=== PATIENT | female | born 1990 | race Caucasian/White ===

== ENCOUNTER 2016-06-10 18:45 | Emergency (ER) | payer OTHER ==
--- NOTE | 2016-06-10 22:20 | ED ORDER SUMMARY ---
..... Patient: IVA GOMEZ OrderSheet [facility] VisitID: [id number] [address] [place] [address] 25y, F Registration Date/Time: 06/10/2016 ORDER SHEET Weight: 49.8 kg (stated) Allergies: No Known Drug Allergy GENERAL ORDERS: UA-Culture if indicated Urgent (19:18 06/10/2016 DDean R.N. per protocol) (19:25 EBonham) Pelvic Exam Setup (20:20 06/10/2016 HBivens A.R.N.P.) (20:30 EBonham) Heart Tones (20:20 06/10/2016 HBivens A.R.N.P.) (20:25 EBonham) Wet Prep (Vaginal) (vagina) Urgent (20:43 06/10/2016 HBivens A.R.N.P.) (Ack 20:44 CHagerty ER Black Ash Worker) (20:50 EBonham) GC/Chlamydia (Vaginal) (vagina) Urgent (20:43 06/10/2016 HBivens A.R.N.P.) (Ack 20:44 CHagerty ER Black [place] Worker) (20:50 EBonham) Urine Drug Screen Urgent (20:43 06/10/2016 HBivens A.R.N.P.) (Ack 20:44 CHagerty ER Black [place] Worker) (20:50 EBonham) MEDICATION ORDERS: Ceftriaxone IM 250 mg (NOW) (22:20 06/10/2016 HBivens A.R.N.P.) (22:38 EBonham) IV FLUIDS: ORDER SHEET NOTES: [Electronically signed by Carlie Soto (23:00 06/10/2016)] [Electronically signed by Elaina Bates A.R.N.P. (13:35 06/11/2016)] [Electronically locked/signed by Carlie Soto (23:00 06/10/2016)]
--- NOTE | 2016-06-10 22:20 | ED NURSING NOTES ---
Clinical Report - Nurses [facility] [address] [place] [address] 06/10/2016 18:47 Patient: IVA GOMEZ TRIAGE Triage time 1905. Acuity: LEVEL 3. --19:13 Nadege Madrid R.N. 19:05 06/10/16. BP: 130/79. HR: 84. RR: 20. O2 saturation: 97%. Temp: 98.2 F. Pain level now: 12/26. --19:13 Nadege Madrid R.N. Chief Complaint: ABDOMINAL CRAMPS and VAGINAL BLEEDING. --23:00 Carlie Soto. Weight: 49.8 kg stated. Height/Length: 63 inches Per Patient. BMI: 19.5. --19:12 Nadege Madrid R.N. Medications None. --19:12 Nadege Madrid R.N. Allergies No Known Drug Allergy. --19:11 Nadege Madrid R.N. History Arrived by private vehicle. Historian: patient. Accompanied by friend. Primary physician (fina). Onset. (spotting started Tuesday night, cont. tues- cramping pain started on tuesday. Has been seen by [facility] with Negative exam). ( states she has been under alot of stress lately,. just changed dr from jeevan [facility] to bobby). PAST MEDICAL HX: OB history: G 5; P 1; Ab 3 (3 SAB). SOCIAL HX: Light tobacco smoker (cigarette)- less than 1/2 a pack per day. No alcohol use or drug use. --19:13 Nadege Madrid R.N. PROBLEMS: Influenza. Migraine Headache. Threatened . Problems. Care. Dysfunctional Uterine Bleeding. Pharyngitis. Dental Abscess. Pelvic Pain. Vaginitis. Dental Pain. Dental Caries. Sinusitis. UTI - Urinary Tract Infection. Bronchitis. Pelvic Inflammatory Disease. --19:10 Nadege Madrid R.N. ADDITIONAL SURGERIES: Dental Surgery. --19:10 Nadege Madrid R.N. Interventions ID band on patient. To treatment room. --19:13 Nadege Madrid R.N. NURSING PROGRESS NOTES ( FHT 150 mid low abd). --20:26 Carlie Soto Rn Surgery provided for the pelvic exam by the physician. PELVIC EXAM: Pelvic exam performed by INCLUSION INTERN. Assisted by one nurse. Preparation: pelvic tray. Procedure: speculum and bimanual exam. Copious amount of thin white and yellow vaginal discharge noted. Specimens collected and sent to lab: GC, chlamydia and wet prep. Status post-procedure: she was stable. Total time of assist / procedure: 15 minutes. --20:47 Carlie Soto 22:30 06/10/2016 Ceftriaxone IM 250 mg given. Given in the right gluteus claire. Allergies verified and confirmed 5 rights. --22:38 Carlie Soto Reassessment after medication administered. She has had no adverse reaction. Overall patient status is the same- she states feels the same. --22:59 Carlie Soto. DISPOSITION / DISCHARGE Departure time: 2300. Condition at departure: unchanged and stable. Discharge instructions provided and reviewed with the patient. Reviewed medication(s). Patient verbalized understanding. Written instructions provided in Malian. The patient was discharged by the nurse practitioner. She was discharged home and accompanied by family. She left the Emergency Department ambulatory and via private vehicle. Family member driving. --23:00 Carlie Soto 22:59 06/10/16. BP: 132/72. HR: 86. RR: 16. O2 saturation: 98%. Pain level now 05/28. --23:00 Carlie Soto. Locked/Released at 06/10/2016 23:00 by Carlie Soto,
--- NOTE | 2016-06-10 22:20 | ED NURSING NOTES ---
Clinical Report - Nurses [facility] [address] [place] [address] 06/10/2016 18:47 Patient: IVA GOMEZ TRIAGE Triage time 1905. Acuity: LEVEL 3. --19:13 Nadege Madrid R.N. 19:05 06/10/16. BP: 130/79. HR: 84. RR: 20. O2 saturation: 97%. Temp: 98.2 F. Pain level now: 12/26. --19:13 Nadege Madrid R.N. Chief Complaint: ABDOMINAL CRAMPS and VAGINAL BLEEDING. --23:00 Carlie Soto. Weight: 49.8 kg stated. Height/Length: 63 inches Per Patient. BMI: 19.5. --19:12 Nadege Madrid R.N. Medications None. --19:12 Nadege Madrid R.N. Allergies No Known Drug Allergy. --19:11 Nadege Madrid R.N. History Arrived by private vehicle. Historian: patient. Accompanied by friend. Primary physician (fina). Onset. (spotting started Tuesday night, cont. tues- cramping pain started on tuesday. Has been seen by [facility] with Negative exam). ( states she has been under alot of stress lately,. just changed dr from jeevan [facility] to bobby). PAST MEDICAL HX: OB history: G 5; P 1; Ab 3 (3 SAB). SOCIAL HX: Light tobacco smoker (cigarette)- less than 1/2 a pack per day. No alcohol use or drug use. --19:13 Nadege Madrid R.N. PROBLEMS: Influenza. Migraine Headache. Threatened . Problems. Care. Dysfunctional Uterine Bleeding. Pharyngitis. Dental Abscess. Pelvic Pain. Vaginitis. Dental Pain. Dental Caries. Sinusitis. UTI - Urinary Tract Infection. Bronchitis. Pelvic Inflammatory Disease. --19:10 Nadege Madrid R.N. ADDITIONAL SURGERIES: Dental Surgery. --19:10 Nadege Madrid R.N. Interventions ID band on patient. To treatment room. --19:13 Nadege Madrid R.N. NURSING PROGRESS NOTES ( FHT 150 mid low abd). --20:26 Carlie Soto Customer Engagement Specialist provided for the pelvic exam by the physician. PELVIC EXAM: Pelvic exam performed by BUS MATRON. Assisted by one nurse. Preparation: pelvic tray. Procedure: speculum and bimanual exam. Copious amount of thin white and yellow vaginal discharge noted. Specimens collected and sent to lab: GC, chlamydia and wet prep. Status post-procedure: she was stable. Total time of assist / procedure: 15 minutes. --20:47 Carlie Soto 22:30 06/10/2016 Ceftriaxone IM 250 mg given. Given in the right gluteus claire. Allergies verified and confirmed 5 rights. --22:38 Carlie Soto Reassessment after medication administered. She has had no adverse reaction. Overall patient status is the same- she states feels the same. --22:59 Carlie Soto. DISPOSITION / DISCHARGE Departure time: 2300. Condition at departure: unchanged and stable. Discharge instructions provided and reviewed with the patient. Reviewed medication(s). Patient verbalized understanding. Written instructions provided in Gibraltarian. The patient was discharged by the nurse practitioner. She was discharged home and accompanied by family. She left the Emergency Department ambulatory and via private vehicle. Family member driving. --23:00 Carlie Soto 22:59 06/10/16. BP: 132/72. HR: 86. RR: 16. O2 saturation: 98%. Pain level now 05/28. --23:00 Carlie Soto. Locked/Released at 06/10/2016 23:00 by Carlie Soto,
--- NOTE | 2016-06-10 22:20 | ED CLINICAL REPORT ---
Clinical Report - Physicians/Mid Levels [facility] [address] [place] [address] 06/10/2016 18:47 Patient: IVA GOMEZ Time Seen: 19:49; initial patient contact, initial documentation, patient care assumed. Arrived- By private vehicle. Historian- patient. HISTORY OF PRESENT ILLNESS Chief Complaint: VAGINAL BLEEDING. This started about 3 - 4 days ago and now gone. The symptoms are described as mild. Modifying factors. Not worsened by anything. Not relieved by anything. The patient has had crampy, sharp, constant abdominal pain. The pain is described as located in the right lower quadrant, suprapubic region, left lower quadrant and lower abdomen. No nausea, vomiting, diarrhea or radiation of abdominal pain to the back. The patient has had pelvic pain and abnormal bleeding described as spotting. No vaginal pain, low back pain, flank pain, vaginal discharge or pain with urination. No urinary frequency, urgency of urination or hematuria. Sexually active. Currently . In 2nd trimester. confirmed with home test. Has had no care. Recent sonogram showed intrauterine . G 5. P 1. Ab 3. Not receiving care. Similar symptoms previously: None. Recent medical care: The patient was seen recently in a clinic. ( was at clinic in Apr, had us done for appy, not for ). REVIEW OF SYSTEMS No vomiting, diarrhea, fever, difficulty breathing or chest pain. All systems otherwise negative, except as recorded above. PAST HISTORY See nurses notes. ( PROBLEMS: Influenza. Migraine Headache. Threatened . Problems. Care. Dysfunctional Uterine Bleeding. Pharyngitis. Dental Abscess. Pelvic Pain. Vaginitis. Dental Pain. Dental Caries. Sinusitis. UTI - Urinary Tract Infection. Bronchitis. Pelvic Inflammatory Disease. --19:10 Nadege Madrid, R.N. ADDITIONAL SURGERIES: Dental Surgery. --19:10 Nadege Madrid, R.N.). SOCIAL HISTORY Light tobacco smoker. No alcohol use or drug use. No recent travel. Is a local resident. FAMILY HISTORY Negative. ADDITIONAL NOTES The nursing notes have been reviewed with agreement regarding the chief complaint, HPI, ROS, PMH and patient medications and allergies. PHYSICAL EXAM Vital Signs: 06/10/2016 19:05 BP: 130/79. HR: 84. RR: 20. O2 saturation: 97%. Temp: 98.2 F. Pain level now: 910. Have been reviewed as normal and appear to be correct. Appearance: Alert. Oriented X3. No acute distress. (pt appears under the influence). HEENT: Normal external inspection. ENT: Pharynx normal. Neck: Neck supple. CVS: Heart sounds normal. Respiratory: No respiratory distress. Breath sounds normal. Chest nontender. Abdomen: Soft and nontender. Bowel sounds normal. No organomegaly. No mass. Back: Normal external inspection. : External inspection normal. Speculum exam abnormal. A copious amount of thin, white and yellow vaginal discharge present. No vaginal bleeding. Cervical os closed. No cervical dilation. No tissue present. No cervicitis. No herpes-like lesions. Bimanual exam abnormal. Mild right adnexal tenderness; uterine tenderness. No right adnexal fullness or mass. No left adnexal tenderness. No cervical motion tenderness. Enlarged uterus- (slightly below umbilicus) Size consistent with dates. Normal heart tones. No uterine tenderness. No tenderness with movement of the cervix. Skin: Skin warm and dry. Normal skin color. No rash. Normal skin turgor. Extremities: Extremities nontender. No lower extremity edema. Neuro: Oriented X 3. Mood/affect normal. No motor deficit. No sensory deficit. LABS, X-RAYS, AND EKG Laboratory Tests: UA-Culture if indicated: (SHEILA: 06/10/2016 19:15) ( MsgRcvd 06/10/2016 19:40) Final results Test Result Flag Units (Reference) URINE COLOR YELLOW URINE APPEARANCE CLEAR URINE GLUCOSE NEGATIVE (NEGATIVE) URINE BILIRUBIN NEGATIVE (NEGATIVE) URINE KETONE NEGATIVE (NEGATIVE) URINE SPECIFIC GRAVITY 1.010 (1.010-1.030) URINE PH 7.0 (5.0-8.0) URINE PROTEIN NEGATIVE (NEGATIVE) URINE UROBILINOGEN 0.2 EU/dL (0.2-1.0) URINE NITRITE NEGATIVE (NEGATIVE) URINE BLOOD NEGATIVE (NEGATIVE) URINE LEUK ESTERASE NEGATIVE (NEGATIVE) URINE RBC NONE SEEN rbc/hpf (0-1) URINE WBC 0-1 wbc/hpf (0-1) URINE EPITHELIAL CELLS 1-3 EPI/hpf (0-5) URINE BACTERIA TRACE (<1+) (NONE SEEN) URINE COMMENT CULT NOT INDICATED URINE CULTURES ARE SET-UP BASED ON THE FOLLOWING CRITERIA:POSITIVE NITRITEPOSITIVE LEUKOCYTE ESTERASEGREATER THAN 10 WHITE BLOOD CELLSMODERATE (2+) OR GREATER BACTERIA Urine Drug Screen: (SHEILA: 06/10/2016 19:15) ( MogRcvd 06/10/2016 22:07) Final results Test Result Flag Units (Reference) AMPHETAMINE/METHAMPHETAMINE NEGATIVE (NEGATIVE) BARBITURATE NEGATIVE (NEGATIVE) BENZODIAZEPINE NEGATIVE (NEGATIVE) CANNABINOID NEGATIVE (NEGATIVE) COCAINE NEGATIVE (NEGATIVE) ECSTASY NEGATIVE (NEGATIVE) METHADONE NEGATIVE (NEGATIVE) OPIATE NEGATIVE (NEGATIVE) The urine drug screen is a qualitative screening test fordrug overdose and abuse. All screen results should beconsidered as presumptive.Drugs screened for are as follows:BenzodiazepinesCocaineAmphetamines/MetamphetaminesTHC (Tetrahydrocannabinol)OpiatesBarbituratesEcstasyMethadonePositive results are unconfirmed. For confirmation, notifythe lab for the specimen to be sent to the reference lab.All confirmations must be performed by a differentmethodology.The ingestion of natural herbal and plant productscontaining Ephedra/Ephedra metabolites can produce in urineone or more substances capable of cross reacting withamphetamine/methamphetamine immunoassays. These testsprovide a preliminary result only. A more specificalternative chemical method must be used to obtain aconfirmed analytical result. Wet Prep: (SHEILA: 06/10/2016 20:45) ( MsgRcvd 06/10/2016 21:05) Final results SPECIMEN DESCRIPTION: VAGINA Test Result Flag Units (Reference) WET MOUNT CLUE CELLS:: MANY * EPITHELIAL CELLS: MANY -- SOURCE?: VAGINA WHITE BLOOD CELLS: MANY TRICHOMONAS:: NONE -- YEAST:: NONE . PROGRESS AND PROCEDURES Course of Care: FHT's per nurse - 150's and strong pt changing her hx, from triage notes to exam, and then during exam and then again during pelvic exam portion, pt now telling me that she had something strange come out of her area captain and took picture of it, showed me photo and appears to be large vag dc/mucus type thing on tissue, pt now telling me she is having dc and can't remember when it started and that she wasn't really bleeding, only saw pink colored stuff on tissue when she wiped. Patient counseled in person regarding the patient's stable condition, test results and diagnosis. 22:16. Differential Diagnosis: Other possible considerations: threatened miscarriage, vag bleed, gonorrhea, chlamydia, trick, yeast, bv, pid. Above considerations are based on history, physical exam and laboratory data. Differential diagnosis was discussed with patient. Disposition: Discharged home in good and improved condition (22:20). Condition: good and stable. CLINICAL IMPRESSION Acute severe bacterial vaginitis INSTRUCTIONS No sexual contact. Warnings: GENERAL WARNINGS: Return or contact your physician immediately if your condition worsens or changes unexpectedly, if not improving as expected, or if other problems arise. Specifically return if problem worsens. Prescription Medications: Flagyl 500 mg: Take 1 tablet orally every 12 hours for 7 days. No refill. Substitution is permissible. Understanding of the discharge instructions verbalized by patient. Follow-up with: Wesley Remy MD, Obstetrics/Gynecology, , [facility], [address] [place] [address] Follow up in about three days even if well. Call for an appointment. Summary of care provided to patient. (Electronically signed by Elaina Bates A.R.N.P. 06/11/2016 13:35)
--- NOTE | 2016-06-10 22:20 | ED ORDER SUMMARY ---
..... Patient: IVA GOMEZ OrderSheet [facility] VisitID: [id number] [address] [place] [address] 25y, F Registration Date/Time: 06/10/2016 ORDER SHEET Weight: 49.8 kg (stated) Allergies: No Known Drug Allergy GENERAL ORDERS: UA-Culture if indicated Urgent (19:18 06/10/2016 DDean R.N. per protocol) (19:25 EBonham) Pelvic Exam Setup (20:20 06/10/2016 HBivens A.R.N.P.) (20:30 EBonham) Heart Tones (20:20 06/10/2016 HBivens A.R.N.P.) (20:25 EBonham) Wet Prep (Vaginal) (vagina) Urgent (20:43 06/10/2016 HBivens A.R.N.P.) (Ack 20:44 CHagerty ER Gelatin Powder Mixer) (20:50 EBonham) GC/Chlamydia (Vaginal) (vagina) Urgent (20:43 06/10/2016 HBivens A.R.N.P.) (Ack 20:44 CHagerty ER Gelatin Powder Mixer) (20:50 EBonham) Urine Drug Screen Urgent (20:43 06/10/2016 HBivens A.R.N.P.) (Ack 20:44 CHagerty ER Gelatin Powder Mixer) (20:50 EBonham) MEDICATION ORDERS: Ceftriaxone IM 250 mg (NOW) (22:20 06/10/2016 HBivens A.R.N.P.) (22:38 EBonham) IV FLUIDS: ORDER SHEET NOTES: [Electronically signed by Carlie Soto (23:00 06/10/2016)] [Electronically signed by Elaina Bates A.R.N.P. (13:35 06/11/2016)] [Electronically locked/signed by Carlie Soto (23:00 06/10/2016)]
--- NOTE | 2016-06-10 22:20 | ED CLINICAL REPORT ---
Clinical Report - Physicians/Mid Levels [facility] [address] [place] [address] 06/10/2016 18:47 Patient: IVA GOMEZ Time Seen: 19:49; initial patient contact, initial documentation, patient care assumed. Arrived- By private vehicle. Historian- patient. HISTORY OF PRESENT ILLNESS Chief Complaint: VAGINAL BLEEDING. This started about 3 - 4 days ago and now gone. The symptoms are described as mild. Modifying factors. Not worsened by anything. Not relieved by anything. The patient has had crampy, sharp, constant abdominal pain. The pain is described as located in the right lower quadrant, suprapubic region, left lower quadrant and lower abdomen. No nausea, vomiting, diarrhea or radiation of abdominal pain to the back. The patient has had pelvic pain and abnormal bleeding described as spotting. No vaginal pain, low back pain, flank pain, vaginal discharge or pain with urination. No urinary frequency, urgency of urination or hematuria. Sexually active. Currently . In 2nd trimester. confirmed with home test. Has had no care. Recent sonogram showed intrauterine . G 5. P 1. Ab 3. Not receiving care. Similar symptoms previously: None. Recent medical care: The patient was seen recently in a clinic. ( was at clinic in Apr, had us done for appy, not for ). REVIEW OF SYSTEMS No vomiting, diarrhea, fever, difficulty breathing or chest pain. All systems otherwise negative, except as recorded above. PAST HISTORY See nurses notes. ( PROBLEMS: Influenza. Migraine Headache. Threatened . Problems. Care. Dysfunctional Uterine Bleeding. Pharyngitis. Dental Abscess. Pelvic Pain. Vaginitis. Dental Pain. Dental Caries. Sinusitis. UTI - Urinary Tract Infection. Bronchitis. Pelvic Inflammatory Disease. --19:10 Nadege Madrid, R.N. ADDITIONAL SURGERIES: Dental Surgery. --19:10 Nadege Madrid, R.N.). SOCIAL HISTORY Light tobacco smoker. No alcohol use or drug use. No recent travel. Is a local resident. FAMILY HISTORY Negative. ADDITIONAL NOTES The nursing notes have been reviewed with agreement regarding the chief complaint, HPI, ROS, PMH and patient medications and allergies. PHYSICAL EXAM Vital Signs: 06/10/2016 19:05 BP: 130/79. HR: 84. RR: 20. O2 saturation: 97%. Temp: 98.2 F. Pain level now: 910. Have been reviewed as normal and appear to be correct. Appearance: Alert. Oriented X3. No acute distress. (pt appears under the influence). HEENT: Normal external inspection. ENT: Pharynx normal. Neck: Neck supple. CVS: Heart sounds normal. Respiratory: No respiratory distress. Breath sounds normal. Chest nontender. Abdomen: Soft and nontender. Bowel sounds normal. No organomegaly. No mass. Back: Normal external inspection. : External inspection normal. Speculum exam abnormal. A copious amount of thin, white and yellow vaginal discharge present. No vaginal bleeding. Cervical os closed. No cervical dilation. No tissue present. No cervicitis. No herpes-like lesions. Bimanual exam abnormal. Mild right adnexal tenderness; uterine tenderness. No right adnexal fullness or mass. No left adnexal tenderness. No cervical motion tenderness. Enlarged uterus- (slightly below umbilicus) Size consistent with dates. Normal heart tones. No uterine tenderness. No tenderness with movement of the cervix. Skin: Skin warm and dry. Normal skin color. No rash. Normal skin turgor. Extremities: Extremities nontender. No lower extremity edema. Neuro: Oriented X 3. Mood/affect normal. No motor deficit. No sensory deficit. LABS, X-RAYS, AND EKG Laboratory Tests: UA-Culture if indicated: (SHEILA: 06/10/2016 19:15) ( MsgRcvd 06/10/2016 19:40) Final results Test Result Flag Units (Reference) URINE COLOR YELLOW URINE APPEARANCE CLEAR URINE GLUCOSE NEGATIVE (NEGATIVE) URINE BILIRUBIN NEGATIVE (NEGATIVE) URINE KETONE NEGATIVE (NEGATIVE) URINE SPECIFIC GRAVITY 1.010 (1.010-1.030) URINE PH 7.0 (5.0-8.0) URINE PROTEIN NEGATIVE (NEGATIVE) URINE UROBILINOGEN 0.2 EU/dL (0.2-1.0) URINE NITRITE NEGATIVE (NEGATIVE) URINE BLOOD NEGATIVE (NEGATIVE) URINE LEUK ESTERASE NEGATIVE (NEGATIVE) URINE RBC NONE SEEN rbc/hpf (0-1) URINE WBC 0-1 wbc/hpf (0-1) URINE EPITHELIAL CELLS 1-3 EPI/hpf (0-5) URINE BACTERIA TRACE (<1+) (NONE SEEN) URINE COMMENT CULT NOT INDICATED URINE CULTURES ARE SET-UP BASED ON THE FOLLOWING CRITERIA:POSITIVE NITRITEPOSITIVE LEUKOCYTE ESTERASEGREATER THAN 10 WHITE BLOOD CELLSMODERATE (2+) OR GREATER BACTERIA Urine Drug Screen: (SHEILA: 06/10/2016 19:15) ( OrgRcvd 06/10/2016 22:07) Final results Test Result Flag Units (Reference) AMPHETAMINE/METHAMPHETAMINE NEGATIVE (NEGATIVE) BARBITURATE NEGATIVE (NEGATIVE) BENZODIAZEPINE NEGATIVE (NEGATIVE) CANNABINOID NEGATIVE (NEGATIVE) COCAINE NEGATIVE (NEGATIVE) ECSTASY NEGATIVE (NEGATIVE) METHADONE NEGATIVE (NEGATIVE) OPIATE NEGATIVE (NEGATIVE) The urine drug screen is a qualitative screening test fordrug overdose and abuse. All screen results should beconsidered as presumptive.Drugs screened for are as follows:BenzodiazepinesCocaineAmphetamines/MetamphetaminesTHC (Tetrahydrocannabinol)OpiatesBarbituratesEcstasyMethadonePositive results are unconfirmed. For confirmation, notifythe lab for the specimen to be sent to the reference lab.All confirmations must be performed by a differentmethodology.The ingestion of natural herbal and plant productscontaining Ephedra/Ephedra metabolites can produce in urineone or more substances capable of cross reacting withamphetamine/methamphetamine immunoassays. These testsprovide a preliminary result only. A more specificalternative chemical method must be used to obtain aconfirmed analytical result. Wet Prep: (SHEILA: 06/10/2016 20:45) ( MsgRcvd 06/10/2016 21:05) Final results SPECIMEN DESCRIPTION: VAGINA Test Result Flag Units (Reference) WET MOUNT CLUE CELLS:: MANY * EPITHELIAL CELLS: MANY -- SOURCE?: VAGINA WHITE BLOOD CELLS: MANY TRICHOMONAS:: NONE -- YEAST:: NONE . PROGRESS AND PROCEDURES Course of Care: FHT's per nurse - 150's and strong pt changing her hx, from triage notes to exam, and then during exam and then again during pelvic exam portion, pt now telling me that she had something strange come out of her captain/airline pilot and took picture of it, showed me photo and appears to be large vag dc/mucus type thing on tissue, pt now telling me she is having dc and can't remember when it started and that she wasn't really bleeding, only saw pink colored stuff on tissue when she wiped. Patient counseled in person regarding the patient's stable condition, test results and diagnosis. 22:16. Differential Diagnosis: Other possible considerations: threatened miscarriage, vag bleed, gonorrhea, chlamydia, trick, yeast, bv, pid. Above considerations are based on history, physical exam and laboratory data. Differential diagnosis was discussed with patient. Disposition: Discharged home in good and improved condition (22:20). Condition: good and stable. CLINICAL IMPRESSION Acute severe bacterial vaginitis INSTRUCTIONS No sexual contact. Warnings: GENERAL WARNINGS: Return or contact your physician immediately if your condition worsens or changes unexpectedly, if not improving as expected, or if other problems arise. Specifically return if problem worsens. Prescription Medications: Flagyl 500 mg: Take 1 tablet orally every 12 hours for 7 days. No refill. Substitution is permissible. Understanding of the discharge instructions verbalized by patient. Follow-up with: Wesley Remy MD, Obstetrics/Gynecology, , [facility], [address] [place] [address] Follow up in about three days even if well. Call for an appointment. Summary of care provided to patient. (Electronically signed by Elaina Bates A.R.N.P. 06/11/2016 13:35)
--- NOTE | 2016-06-11 13:36 | ED DISCHARGE INSTRUCTIONS ---
Patient: IVA GOMEZ General Instructions [facility] VisitID: [id number] [address] [place] [phone] 25y, F Registration Date/Time: 06/10/2016 Acute severe bacterial vaginitis INSTRUCTIONS No sexual contact. Warnings: GENERAL WARNINGS: Return or contact your physician immediately if your condition worsens or changes unexpectedly, if not improving as expected, or if other problems arise. Specifically return if problem worsens. Prescription Medications: Flagyl 500 mg: Take 1 tablet orally every 12 hours for 7 days. No refill. Substitution is permissible. Understanding of the discharge instructions verbalized by patient. Follow-up with: Wesley Remy MD, Obstetrics/Gynecology, , [facility], [address] [place] [address] Follow up in about three days even if well. Call for an appointment. Summary of care provided to patient. ADDITIONAL INFORMATION Bacterial Vaginosis You have a bacterial infection of the vagina called bacterial vaginosis (BV). It may also be called gardnerella or non-specific vaginitis. BV occurs when the "bad" bacteria outnumber the "good" bacteria that are normally present in the vagina. Symptoms include foul-smelling vaginal discharge (most noticeable after vaginal intercourse). There may also be burning with urination. The burning is caused as the urine passes over the inflamed outer vaginal area. The cause of bacterial vaginosis is not certain. However, your risk is higher if you recently began a new sexual relationship, or have had many sex partners in the past. Your risk is also higher if you douche often. While bacterial vaginosis most often occurs only in sexually active women, this is not a true sexually transmitted disease. You did not get this from your partner. You cannot give it to your partner. The infection may be related to temporary changes in the pH of vaginal fluids after being exposed to semen. Home Care: Keep the genital area clean and free of discharge. Do this by wearing an absorbent sanitary pad and changing it often. Shower daily. When you shower, clean the outer vaginal area with plain soap and water. Do not douche during treatment unless advised to do so by your doctor. Routine douching after treatment is no longer recommended to clean the vagina. It raises your risk of vaginal infection and pelvic inflammatory disease. Avoid having sex until you have finished all antibiotic medicine and all symptoms have gone away. Wear cotton underwear or cotton-lined panty hose. Dont wear pants that are too tight. Limiting the number of sex partners you have lowers your risk of this and other vaginal infections, STDs, and HIV. Take all medicine as directed until it is gone, even if you are feeling better. If you dont do this, symptoms might return. Follow Up with your doctor if symptoms dont go away after the medicine is finished. Get Prompt Medical Attention if any of the following occur: Fever of 100.4F (38C) or higher, or as directed by your healthcare provider Lower abdominal pain Rash or joint pain Painful sores around the outer vaginal area or on your partners penis Metronidazole Oral tablet What is this medicine? METRONIDAZOLE (me troe NI da zole) is an antiinfective. It is used to treat certain kinds of bacterial and protozoal infections. It will not work for colds, flu, or other viral infections. How should I use this medicine? Take this medicine by mouth with a full glass of water. Follow the directions on the prescription label. Take your medicine at regular intervals. Do not take your medicine more often than directed. Take all of your medicine as directed even if you think you are better. Do not skip doses or stop your medicine early. Talk to your catering assistant regarding the use of this medicine in children. Special care may be needed. What side effects may I notice from receiving this medicine? Side effects that you should report to your doctor or health caretaker grounds as soon as possible: allergic reactions like skin rash or hives, swelling of the face, lips, or tongue confusion, clumsiness difficulty speaking discolored or sore mouth dizziness fever, infection numbness, tingling, pain or weakness in the hands or feet trouble passing urine or change in the amount of urine redness, blistering, peeling or loosening of the skin, including inside the mouth seizures unusually weak or tired vaginal irritation, dryness, or discharge Side effects that usually do not require medical attention (report to your doctor or health caretaker grounds if they continue or are bothersome): diarrhea headache irritability metallic taste nausea stomach pain or cramps trouble sleeping What may interact with this medicine? Do not take this medicine with any of the following medications: alcohol or any product that contains alcohol amprenavir oral solution cisapride disulfiram dofetilide dronedarone paclitaxel injection pimozide ritonavir oral solution sertraline oral solution sulfamethoxazole-trimethoprim injection thioridazine ziprasidone This medicine may also interact with the following medications: cimetidine lithium other medicines that prolong the QT interval (cause an abnormal heart rhythm) phenobarbital phenytoin warfarin What if I miss a dose? If you miss a dose, take it as soon as you can. If it is almost time for your next dose, take only that dose. Do not take double or extra doses. Where should I keep my medicine? Keep out of the reach of children. Store at room temperature below 25 degrees C (77 degrees F). Protect from light. Keep container tightly closed. Throw away any unused medicine after the expiration date. What should I tell my health care provider before I take this medicine? They need to know if you have any of these conditions: anemia or other blood disorders disease of the nervous system fungal or yeast infection if you drink alcohol containing drinks liver disease seizures an unusual or allergic reaction to metronidazole, or other medicines, foods, dyes, or preservatives or trying to get breast-feeding What should I watch for while using this medicine? Tell your doctor or health caretaker grounds if your symptoms do not improve or if they get worse. You may get drowsy or dizzy. Do not drive, use machinery, or do anything that needs mental alertness until you know how this medicine affects you. Do not stand or sit up quickly, especially if you are an older patient. This reduces the risk of dizzy or fainting spells. Avoid alcoholic drinks while you are taking this medicine and for three days afterward. Alcohol may make you feel dizzy, sick, or flushed. If you are being treated for a sexually transmitted disease, avoid sexual contact until you have finished your treatment. Your sexual partner may also need treatment. You have been given the following additional information: Vaginitis, Bacterial Metronidazole Oral tablet (Electronically signed by Elaina Bates A.R.N.P. 06/11/2016 13:35)
--- NOTE | 2016-06-11 13:36 | ED DISCHARGE INSTRUCTIONS ---
Patient: IVA GOMEZ General Instructions [facility] VisitID: [id number] [address]neesh [place] [id number] 25y, F Registration Date/Time: 06/10/2016 Acute severe bacterial vaginitis INSTRUCTIONS No sexual contact. Warnings: GENERAL WARNINGS: Return or contact your physician immediately if your condition worsens or changes unexpectedly, if not improving as expected, or if other problems arise. Specifically return if problem worsens. Prescription Medications: Flagyl 500 mg: Take 1 tablet orally every 12 hours for 7 days. No refill. Substitution is permissible. Understanding of the discharge instructions verbalized by patient. Follow-up with: Wesley Remy MD, Obstetrics/Gynecology, , [facility], [address] [place] [address] Follow up in about three days even if well. Call for an appointment. Summary of care provided to patient. ADDITIONAL INFORMATION Bacterial Vaginosis You have a bacterial infection of the vagina called bacterial vaginosis (BV). It may also be called gardnerella or non-specific vaginitis. BV occurs when the "bad" bacteria outnumber the "good" bacteria that are normally present in the vagina. Symptoms include foul-smelling vaginal discharge (most noticeable after vaginal intercourse). There may also be burning with urination. The burning is caused as the urine passes over the inflamed outer vaginal area. The cause of bacterial vaginosis is not certain. However, your risk is higher if you recently began a new sexual relationship, or have had many sex partners in the past. Your risk is also higher if you douche often. While bacterial vaginosis most often occurs only in sexually active women, this is not a true sexually transmitted disease. You did not get this from your partner. You cannot give it to your partner. The infection may be related to temporary changes in the pH of vaginal fluids after being exposed to semen. Home Care: Keep the genital area clean and free of discharge. Do this by wearing an absorbent sanitary pad and changing it often. Shower daily. When you shower, clean the outer vaginal area with plain soap and water. Do not douche during treatment unless advised to do so by your doctor. Routine douching after treatment is no longer recommended to clean the vagina. It raises your risk of vaginal infection and pelvic inflammatory disease. Avoid having sex until you have finished all antibiotic medicine and all symptoms have gone away. Wear cotton underwear or cotton-lined panty hose. Dont wear pants that are too tight. Limiting the number of sex partners you have lowers your risk of this and other vaginal infections, STDs, and HIV. Take all medicine as directed until it is gone, even if you are feeling better. If you dont do this, symptoms might return. Follow Up with your doctor if symptoms dont go away after the medicine is finished. Get Prompt Medical Attention if any of the following occur: Fever of 100.4F (38C) or higher, or as directed by your healthcare provider Lower abdominal pain Rash or joint pain Painful sores around the outer vaginal area or on your partners penis Metronidazole Oral tablet What is this medicine? METRONIDAZOLE (me troe NI da zole) is an antiinfective. It is used to treat certain kinds of bacterial and protozoal infections. It will not work for colds, flu, or other viral infections. How should I use this medicine? Take this medicine by mouth with a full glass of water. Follow the directions on the prescription label. Take your medicine at regular intervals. Do not take your medicine more often than directed. Take all of your medicine as directed even if you think you are better. Do not skip doses or stop your medicine early. Talk to your field hand regarding the use of this medicine in children. Special care may be needed. What side effects may I notice from receiving this medicine? Side effects that you should report to your doctor or health career technical education instructor as soon as possible: allergic reactions like skin rash or hives, swelling of the face, lips, or tongue confusion, clumsiness difficulty speaking discolored or sore mouth dizziness fever, infection numbness, tingling, pain or weakness in the hands or feet trouble passing urine or change in the amount of urine redness, blistering, peeling or loosening of the skin, including inside the mouth seizures unusually weak or tired vaginal irritation, dryness, or discharge Side effects that usually do not require medical attention (report to your doctor or health career technical education instructor if they continue or are bothersome): diarrhea headache irritability metallic taste nausea stomach pain or cramps trouble sleeping What may interact with this medicine? Do not take this medicine with any of the following medications: alcohol or any product that contains alcohol amprenavir oral solution cisapride disulfiram dofetilide dronedarone paclitaxel injection pimozide ritonavir oral solution sertraline oral solution sulfamethoxazole-trimethoprim injection thioridazine ziprasidone This medicine may also interact with the following medications: cimetidine lithium other medicines that prolong the QT interval (cause an abnormal heart rhythm) phenobarbital phenytoin warfarin What if I miss a dose? If you miss a dose, take it as soon as you can. If it is almost time for your next dose, take only that dose. Do not take double or extra doses. Where should I keep my medicine? Keep out of the reach of children. Store at room temperature below 25 degrees C (77 degrees F). Protect from light. Keep container tightly closed. Throw away any unused medicine after the expiration date. What should I tell my health care provider before I take this medicine? They need to know if you have any of these conditions: anemia or other blood disorders disease of the nervous system fungal or yeast infection if you drink alcohol containing drinks liver disease seizures an unusual or allergic reaction to metronidazole, or other medicines, foods, dyes, or preservatives or trying to get breast-feeding What should I watch for while using this medicine? Tell your doctor or health career technical education instructor if your symptoms do not improve or if they get worse. You may get drowsy or dizzy. Do not drive, use machinery, or do anything that needs mental alertness until you know how this medicine affects you. Do not stand or sit up quickly, especially if you are an older patient. This reduces the risk of dizzy or fainting spells. Avoid alcoholic drinks while you are taking this medicine and for three days afterward. Alcohol may make you feel dizzy, sick, or flushed. If you are being treated for a sexually transmitted disease, avoid sexual contact until you have finished your treatment. Your sexual partner may also need treatment. You have been given the following additional information: Vaginitis, Bacterial Metronidazole Oral tablet (Electronically signed by Elaina Bates A.R.N.P. 06/11/2016 13:35)
--- NOTE | 2016-06-11 13:36 | ED MAR SUMMARY ---
..... Medication Administration Record [facility] [address] [place] [address] Patient: IVA GOMEZ Visit ID: [id number] 25y, F Weight: 49.8 kg Height/Length: 63 in BMI: 19.5 ALLERGIES: No Known Drug Allergy Given 22:30 06/10/2016 Carlie Soto, Medication Administered: CEFTRIAXONE [IM], Dose: 250 mg IM. Medication Ordered: Ceftriaxone IM 250 mg (NOW).
--- NOTE | 2016-06-11 13:36 | ED MAR SUMMARY ---
..... Medication Administration Record [facility] [address] [place] [address] Patient: IVA GOMEZ Visit ID: [id number] 25y, F Weight: 49.8 kg Height/Length: 63 in BMI: 19.5 ALLERGIES: No Known Drug Allergy Given 22:30 06/10/2016 Carlie Soto, Medication Administered: CEFTRIAXONE [IM], Dose: 250 mg IM. Medication Ordered: Ceftriaxone IM 250 mg (NOW).
--- NOTE | 2016-06-11 13:36 | ED MED RECONCILIATION SUMMARY ---
Patient: IVA GOMEZ Medication Reconciliation Report [facility] VisitID: [id number] [address] [place] [address] 25y, F Registration Date/Time: 06/10/2016 Weight: 49.8 kg Height/Length: 63 in. BMI: 19.5 ALLERGIES: No Known Drug Allergy The patient's Home Medications are listed below: NONE. The source(s) of the original Home Medication information: Not obtained. The following Medications were given to the patient in the Emergency Department: Ceftriaxone [IM] IM 250 mg, administered: 06/10/2016 10:30:00 PM The following Medications were prescribed to the patient: Flagyl 500 mg: Take 1 tablet orally every 12 hours for 7 days. No refill. Substitution is permissible. -- Elaina Bates A.R.N.P.
--- NOTE | 2016-06-11 13:36 | ED MED RECONCILIATION SUMMARY ---
Patient: IVA GOMEZ Medication Reconciliation Report [facility] VisitID: [id number] [address] [place] [address] 25y, F Registration Date/Time: 06/10/2016 Weight: 49.8 kg Height/Length: 63 in. BMI: 19.5 ALLERGIES: No Known Drug Allergy The patient's Home Medications are listed below: NONE. The source(s) of the original Home Medication information: Not obtained. The following Medications were given to the patient in the Emergency Department: Ceftriaxone [IM] IM 250 mg, administered: 06/10/2016 10:30:00 PM The following Medications were prescribed to the patient: Flagyl 500 mg: Take 1 tablet orally every 12 hours for 7 days. No refill. Substitution is permissible. -- Elaina Bates A.R.N.P.
== END 2016-06-10 23:00 | disposition home or self-care (01) ==
LOC: ED SRH 18:45
DX: O26.892 Other specified pregnancy related conditions, second trimester (principal); N76.0 Acute vaginitis; F17.210 Nicotine dependence, cigarettes, uncomplicated
CPT/HCPCS: 90004; 90195; 91227; 91228; 92760; 92761; 92762; 92763; 92764; 92765; 92766; 92767